=== PATIENT | male | born 1975 | race Caucasian/White ===

== ENCOUNTER 2024-04-17 10:33 | Emergency (ER) | payer BC ==
[~2024-04-17] VITALS: Ht 172.7 cm; Wt 98.8 kg
[2024-04-17 10:35] VITALS: TEMP 98.9
[2024-04-17 11:20] LABS: BASOPHILS # (AUTO) 0.1 X10'3 (0-0.2); BASOPHILS % (AUTO) 0.9 % (0-1); EOSINOPHILS % (AUTO) 0 % (0-6); HEMATOCRIT 47.8 % (42.0-52.0); HEMOGLOBIN 16.8 g/dl (14.0-17.9); LYMPHOCYTES # (AUTO) 1.4 X10'3 (1.1-4.8); LYMPHOCYTES % (AUTO) 14.4 % (21-51); MEAN CORPUSCULAR HEMOGLOBIN 32.5 PG (27.0-31.0); MEAN CORPUSCULAR HGB CONC 35.2 g/dL (33.0-36.5); MEAN CORPUSCULAR VOLUME 92.4 FL (78-98); MEAN PLATELET VOLUME 8.3 FL (7.4-10.4); MONOCYTES # (AUTO) 0.4 X10'3 (0-0.9); MONOCYTES % (AUTO) 3.7 % (2-12); PLATELET COUNT 204 X10'3 (140-440); RED BLOOD COUNT 5.17 X10'6 (4.70-6.10); RED CELL DISTRIBUTION WIDTH 13.6 % (11.5-14.5); WHITE BLOOD COUNT 9.9 X10'3 (4.5-11.0)
[2024-04-17 11:39] LABS: ALANINE AMINOTRANSFERASE 21 U/L (12-78); ALBUMIN 4.3 G/DL (3.4-5.0); ALBUMIN/GLOBULIN RATIO 0.9 (1.1-1.5); ALKALINE PHOSPHATASE 77 IU/L (46-116); ANION GAP 10 (8-16); ASPARTATE AMINO TRANSFERASE 14 U/L (10-37); BILIRUBIN,TOTAL 1.2 MG/DL (0.1-1.0); BLOOD UREA NITROGEN 7 MG/DL (7-18); BUN/CREATININE RATIO 8.6 (10.0-20.0); CALCIUM 9.6 MG/DL (8.5-10.1); CHLORIDE 101 MMOL/L (99-107); CREATININE 0.81 MG/DL (0.60-1.10); GLUCOSE 116 MG/DL (70-104); POTASSIUM 4.1 MMOL/L (3.5-5.1); SODIUM 137 MMOL/L (135-145); TOTAL CARBON DIOXIDE 26.3 MMOL/L (24-32); TOTAL PROTEIN 9.1 G/DL (6.4-8.2); eCRCL 107 ML/MIN; eGFR > 90 ML/MIN
[2024-04-17 11:49] LABS: LIPASE 20 U/L (16-77); PRO BRAIN NATRIURETIC PEPTIDE 154 PG/ML (0-125)
[2024-04-17] MEDS: LIDOcaine 2% Viscous 15ml cup MM PRN (14:23)
[2024-04-17] MEDS: dicyclomine 10 MG capsule PO ONE (14:23)
[2024-04-17] MEDS: ondansetron 4mg rapidly disintigrating tab PO ONE (14:23)
[2024-04-17] MEDS: mag hydrox/Alum hydrox/simeth 30ml oral suspension PO ONE (14:23)
[2024-04-17 14:57] VITALS: BP 145/99; PULSE 86; RESP 16; O2SAT 99
[2024-04-17] MEDS ORDERED: OMEP40CA21 PO (14:59)
[2024-04-17] MEDS ORDERED: DICY20TA17 PO (14:59)
[2024-04-17] MEDS ORDERED: ONDA-245 PO (14:59)
== END 2024-04-17 15:32 | disposition home or self-care (01) ==
LOC: ER 10:34
DX: R10.13 Epigastric pain (principal); K21.9 Gastro-esophageal reflux disease without esophagitis
CPT/HCPCS: 36415; 76700; 80053; 83690; 83880; 84484; 85025; 93005; 99284